=== PATIENT | female | born 1955 | race Caucasian/White ===

== ENCOUNTER 2025-07-01 18:11 | Inpatient (IN) | payer BC ==
[2025-06-24] MEDS: K and/or MAG REPLACEMENT MC SCH (08:00)
[2025-06-24] MEDS: methadone 5mg tablet PO SCH (13:00)
[2025-06-24] MEDS: dorzolamide 2% ophthalmic drops 10ml EACHEYE SCH (13:00)
[2025-06-24] MEDS: Ensure Enlive - 237ML PO SCH (16:08)
[~2025-07-01] VITALS: Ht 180.3 cm; Wt 52.0 kg
[2025-07-01] MEDS: LIDOcaine 1% W/epiNEPHrine 1:100,000 20ml vial SQ ONE (18:15)
--- NOTE | 2025-07-01 18:19 | ELECTROCARDIOGRAPH REPORT ---
[facility] Test Date: 2025-07-01 Test Time: 18:15:20 Pat Name: IRENE KAMARA Department: EMERGENCY ROOM Room: [place] [address] Gender: F Yarn Tester: : 1955 Requested By: PRASANNA BAUMANN Order Number: [id number] Reading MD: Dr. PAZ Hale Measurements Intervals [place] Rate: 63 P: 80 DE: 159 QRS: 95 QRSD: 130 T: 44 QT: 426 QTc: 437 Interpretive Statements Sinus rhythm Right bundle branch block Minimal ST elevation, inferior leads Electronically Signed On 07-11-2025 13:20:[address] PAZ Hale Please click the below link to view image of tracing.
[2025-07-01] MEDS ORDERED: iohexol 300mg/ml 100ml inj. ONE (18:22)
--- NOTE | 2025-07-01 18:27 | Physician Documentation ---
History of Present Illness General Chief Complaint: Hypotension Stated Complaint: FALL Time Seen by MD: 18:14 History of Present Illness Initial Comments This is a 70-year-old female who was brought in for evaluation of potential traumatic injuries sustained in the fall at 1:00 a.m. today. The etiology for fall appears to be mechanical according to the patient, she tripped. She injured her left hand. Somebody bandages the hand. The patient was placed back in the bed. It isn't not clear why they waited five extra hours to call the ambulance. Patient denies blood thinners, denies head strike, denies loss of consciousness. At the time of my examination she reports pain in her left hip, left ankle/foot. Worse with a any motion. Unable to ambulate. Did not attempt to treat her symptoms. Denies any chest pain, abdominal pain. The patient was brought in by BLS crew, however appear to be hypotensive EN route. Medication Reconciliation Allergies: Coded Allergies: Penicillins (Unverified Allergy, Unknown, 07/01/25) Review of Systems ROS 10 point review of systems was performed and unless noted above in HPI is negative for acute process/complaint. Physical Exam Physical Exam Vital Signs: Temperature: 97.9, Source: Temporal, Heart Rate: 63, Respiratory Rate: 20, Weight: 63.000 Oxygen Flow Rate: 0 Physical Exam GENERAL: Awake, alert, oriented, GCS 15, no apparent distress, non-toxic appearing, answers questions, follows commands appropriately. Examined immediately upon arrival in bed 6. HEENT: Atraumatic, normocephalic, edentulous, pupils equal, extraocular muscles intact, sclerae anicteric, mucus membranes moist, oropharynx is clear, no stridor. NECK: supple, full active range of motion, trachea midline, no thyromegaly, no l ymphadenopathy, no JVD. CARDIOVASCULAR: regular rate/rhythm, no murmurs/gallops/rubs, Pulses are 2+ in all extremities and symmetric. Capillary refill less than 2 seconds. PULMONARY: Nonlabored, good air movement ,no respiratory distress, speaking in full sentences, clear to auscultation bilaterally, no wheezing, no ronchi, no rales, no accessory muscle use. GASTROINTESTINAL: Soft, non-tender, non-distended, normal active bowel sounds, no organomegaly, no pulsatile masses, no CVA tenderness. NEUROLOGIC: Lucid with normal mental status. Normal facial symmetry. Moves all extremities symmetrically and with purpose. No truncal ataxia. Speech is fluid without evidence of dysarthria or aphasia, no focal deficits appreciated. MUSCULOSKELETAL: There is full range of motion of all extremities. There is no joint pain or joint swelling or joint erythema. There is no muscle pain or tenderness or swelling. EXTREMITIES: warm, well-perfused, no cyanosis, no clubbing, no edema, no acute deformities. Skin: warm, dry, no rashes or lesions, no jaundice, no petechiae orpurpura. No ecchymosis. PSYCHIATRIC: Normal affect, normal insight, normal concentration. Focused exam: [Left hip tenderness to palpation of the greater trochanter. Left ankle tender to palpation, limited range of motion. Swelling and medial and lateral malleolus. There is a 2 cm jagged laceration to the base of the palm as the left hand. No active bleeding. Neurologically intact distally.] Procedures Joint Reduction Joint Reduction : Reduction By: myself Conscious Sedation: Yes Reduction Attempts: 1 Pre-Procedure NV Exam: within normal limits Post-Procedure NV Exam: within normal limits Post Reduction Film: joint reduced, poor alignment Tolerated Procedure Well?: yes, no complications Moderate Sedation : Pulmonary Assessment: smoker, COPD/Emphysema Neurological Assessment: Unremarkable Cardiovascular Assessment: EKG reviewed, other (Hypotension) Other Systems: other (Methadone use) Hx of sedation difficulty?: No Medications: see reconiliation form ASA Class: III-severe disease Mallampati Score/Visibility of: Class 2-uvula Medication Used: Diprivan Staff Present: 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, 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, 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 Monitoring: desk monitor, Spo2, NIPB, patient on oxygen via N/C, suction ready, crash cart at bedside, BVM ready Tolerated Procedure Well?: yes, no complications Duration of Procedure (min): 22 Progress Results/Orders Results/Orders Orders - SHON BAUMANN DO Accucheck (07/01/25 18:15) Chest,Single View (07/01/25 18:15) Ct Cervical Spine (07/01/25 19:10) Ct Head (07/01/25 19:10) Ct Chest Abdomen Pelvis (07/01/25 19:10) Straight Cath For Urine Sample (07/01/25 18:15) Hip Unilateral 2-3 Views (07/01/25 ) Foot, Complete (3vw Min) (07/01/25 ) Ankle, Complete(3vw Min) (07/01/25 ) Cult Urine + [place] Ct (07/01/25 21:48) Ankle,Limited (Ap/Lat) (07/01/25 23:07) Completed Orders - SHON BAUMANN DO Electrocardiogram (07/01/25 18:15) Cbc/Diff (07/01/25 18:15) Pt Inr (07/01/25 18:15) PTT (07/01/25 18:15) Lipase (07/01/25 18:15) Ethanol (07/01/25 18:15) Drug Screen, Urine (07/01/25 18:15) CK (07/01/25 18:15) Type And Screen (07/01/25 18:15) Chest,Single View (07/01/25 18:15) Ct Cervical Spine (07/01/25 19:10) Ct Head (07/01/25 19:10) Ct Chest Abdomen Pelvis (07/01/25 19:10) Hs Troponin I W Calculations (07/01/25 18:15) Hs Troponin I W Calculations (07/01/25 20:15) Hip Unilateral 2-3 Views (07/01/25 ) Foot, Complete (3vw Min) (07/01/25 ) Ankle, Complete(3vw Min) (07/01/25 ) Lidocaine 1% W/Epi 1:100,000 (Xylocaine (07/01/25 18:15) Tetanus/Pertuss/Diph Acell/Pf (Boostrix (07/01/25 18:15) Iohexol 300mg/Ml 100ml Inj. (Omnipaque-3 (07/01/25 18:22) Ua W/Microscopic, Cult If Ind (07/01/25 21:03) CMP (07/01/25 21:40) Ondansetron Inj. (Zofran 4mg/2ml Vial) (07/01/25 22:30) Ondansetron Inj. (Zofran 4mg/2ml Vial) (07/01/25 22:30) Propofol Inj (Diprivan Inj) (07/01/25 22:30) Fentanyl/Pf (Fentanyl 0.05 Mg/Ml Syringe (07/01/25 22:30) Ankle,Limited (Ap/Lat) (07/01/25 23:07) Medications Received in ER Medications (Trade) Dose Ordered Sig/Xenia Route PRN Reason Start Time Stop Time Status Last Admin Dose Admin (Boostrix vaccine syringe) 0.5 ml ONCE ONCE IMVAC 07/01/25 18:15 07/01/25 18:18 DC 07/01/25 20:40 0.5 ML Vital Signs 07/01/25 07/01/25 07/01/25 07/01/25 18:13 18:35 18:41 18:44 Temp 97.9 97.9 97.9 Pulse 63 74 71 Resp 20 17 14 B/P (MAP) 81/36 111/93 (99) Pulse Ox 95 87 90 O2 Delivery Nasal Cannula O2 Flow Rate 0 2.0 07/01/25 07/01/25 07/01/25 07/01/25 19:00 19:15 19:32 19:45 Temp 97.9 97.9 97.9 97.9 Pulse 72 75 69 70 Resp 20 14 12 13 Pulse Ox 98 92 93 94 07/01/25 07/01/25 07/01/25 07/01/25 20:00 20:15 20:30 20:45 Temp 97.9 97.9 97.9 97.9 Pulse 75 70 72 67 Resp 14 14 12 14 Pulse Ox 93 88 91 91 07/01/25 07/01/25 07/01/25 07/01/25 21:45 22:26 22:52 22:56 Temp 97.9 97.9 Pulse 57 58 60 76 Resp 14 11 15 18 B/P (MAP) 126/63 (84) 128/63 (84) 112/57 Pulse Ox 98 100 98 96 O2 Delivery Nasal Cannula Nasal Cannula O2 Flow Rate 2.0 2.0 2.0 2.0 07/01/25 07/01/25 07/01/25 07/01/25 22:59 23:03 23:08 23:13 Pulse 66 72 63 73 Resp 5 15 13 B/P (MAP) 112/57 85/51 78/42 101/60 Pulse Ox 98 98 96 95 O2 Delivery Nasal Cannula Nasal Cannula Nasal Cannula Nasal Cannula O2 Flow Rate 2.0 2.0 2.0 2.0 07/01/25 07/01/25 23:15 23:30 Pulse 76 76 Resp 11 13 B/P (MAP) 142/124 (130) 127/62 (83) Pulse Ox 97 99 O2 Delivery Nasal Cannula Nasal Cannula O2 Flow Rate 2.0 2.0 Laboratory Tests Test 07/01/25 18:27 07/01/25 20:33 07/01/25 20:56 07/01/25 21:03 White Blood Count 14.3 H Red Blood Count 3.93 L Hemoglobin 11.7 L Hematocrit 35.9 Mean Corpuscular Volume 91.4 Mean Corpuscular Hemoglobin 29.8 Mean Corpuscular Hemoglobin Concent 32.6 L Red Cell Distribution Width 13.1 Platelet Count 238 Mean Platelet Volume 8.5 Neutrophils (%) (Auto) 77.1 H Lymphocytes (%) (Auto) 16.2 L Monocytes (%) (Auto) 5.3 Eosinophils (%) (Auto) 1.1 Basophils (%) (Auto) 0.3 Neutrophils # (Auto) 11.0 H Lymphocytes # (Auto) 2.3 Monocytes # (Auto) 0.8 Eosinophils # (Auto) 0.2 Basophils # (Auto) 0.0 CBC Comment Prothrombin Time 11.1 INR International Normalized Ratio 1.1 Activated Partial Thromboplast Time 27 Coagulation Comments Sodium Level 139 Potassium Level 3.6 Chloride Level 108 H Carbon Dioxide Level 20.9 L Anion Gap 10 Blood Urea Nitrogen 15 Total Bilirubin 0.3 Aspartate Amino Transf (AST/SGOT) 29 Alkaline Phosphatase 60 Total Creatine Kinase 65 Troponin I High Sensitivity 7 9 Total Protein 5.4 L Lipase 18 Chemistry Comments Ethyl Alcohol Level < 10 Troponin I High Sens Percent Delta 28 Troponin I Hi Sens Absolute Change 2 Glucometer 136 H Urine Specimen Description Straight cath Urine Color Yellow Urine Clarity Clear Urine pH 6.5 Urine Specific [place] 1.020 Urine Protein Negative Urine Glucose (UA) Negative Urine Ketones Negative Urine Occult Blood Trace-intact Urine Nitrite Positive H Urine Bilirubin Negative Urine Urobilinogen 1.0 Urine Leukocyte Esterase Negative Urine RBC 0-2 Urine WBC 20-30 H Urine Squamous Epithelial Cells Few Urine Bacteria 4+ Urine Mucus Few Urine Culture Indicated Indicated Volume Urine Centrifuged 10 ml Urine Comment Urine Opiates Screen Negative Urine Methadone Screen Positive Urine Fentanyl Screen Negative Urine Barbiturates Screen Negative Urine Phencyclidine Screen Negative Urine Amphetamines Screen Negative Urine Benzodiazepines Screen Negative Urine Cocaine Screen Negative Urine Cannabinoids Screen Negative Drug Screen Comment Test 07/01/25 22:04 Sodium Level 141 Potassium Level 3.8 Chloride Level 110 H Carbon Dioxide Level 26.6 Anion Gap 4 L Blood Urea Nitrogen 13 Creatinine 0.59 Estimated GFR/1.73 m2 > 90 BUN/Creatinine Ratio 22.0 H Glucose Level 119 H Calcium Level 7.8 L Total Bilirubin 0.3 Aspartate Amino Transf (AST/SGOT) 29 Alanine Aminotransferase (ALT/SGPT) 23 Alkaline Phosphatase 60 Total Protein 5.6 L Albumin 2.8 L Globulin 2.8 Albumin/Globulin Ratio 1.0 L Chemistry Comments Microbiology Date/Time Source Procedure Growth Status 07/01/25 21:48 Urine Straight Cath Urine Culture - Preliminary Culture received. Resulted EKG/XRAY/CT/US/VASC/MRI EKG : Additional Comment EKG was obtained and interpreted by myself shows sinus rhythm of 63, normal DE interval, wide QRS with a right bundle, no QT prolongation, normal axis, no STEMI. Medical Decision Making Additional information obtaine: other (EMS) Findings Facility Status: ED Holds, RME process The plan was discussed with the patient, who demonstrates clear understanding of the plan and is in agreement with the plan unless otherwise noted in the chart. All questions have been answered, all concerns were addressed unless otherwise documented. I was available throughout their ED stay for frequent reassessment and questions. Differential Diagnoses (considered and possible or likely): [Ground level fall, acute traumatic pain, closed head injury, concussion, subdural, subarachnoid, cervical spine fracture or subluxation, lumbar/thoracic spine fracture or subluxation, less likely intrathoracic or intra-abdominal injury. Left hip and ankle contusion versus fracture versus dislocation has been considerably.] ??Differential Diagnoses (considered and unlikely, not requiring evaluation currently): [No evidence of lateralizing sinuses suspect a stroke] MDM Data Please see HPI for the following: Independent Historians and external Records Review. Historian: [Patient] Independent Historians: ?[EMS, record review] Medication Management: [Reviewed medication list] Social History and determinants: [Reviewed] Please see the body of the note for the following: Any independent interpretations of ECG, imaging studies. All vitals signs/haemodynamics, ordered tests were independently reviewed and interpreted by myself. Nursing triage complaint and vitals reviewed, additional nursing notes were reviewed as available and I agree unless otherwise noted or documented in contradiction in the chart Vital Signs: Independently reviewed Labs: Independently interpreted Imaging: Independently interpreted Old Medical Records: Independently reviewed, see HPI for relevant summary and information Pulse Oximetry: [99%] interpreted as [normal on room air] by me [Subway Conductor: [Regular Rate, Regular rhythm, no ectopy, NSR] reviewed and interpreted by me] Additionally notably showing: [Hemodynamics reviewed. On arrival the patient is hypotensive but was fluid responsive. No evidence of respiratory distress and baseline 2 L. CBC shows mild leukocytosis. 77% neutrophils. Coagulation panel is unremarkable. Chemistry panel shows dehydration. Troponin is negative twice. Urine drug screen as expected positive for methadone. UA is concerning for UTI. Foot x-ray and ankle x-ray shows acute comminuted idax-dz-bhawlpnc displaced and impacted fracture distal tibia. Unfortunately with the fracture was too unstable that even with the attempted reduction not much progress was made. Hip x-ray shows an avulsion fracture of the left femur greater trochanter. Chest x-ray is unremarkable except for hyperinflated lungs as expected in his e mphysema patient. A CT head without contrast shows no acute intracranial abnormality. CT C-spine shows no fracture or subluxation of cervical spine. CT of the chest, abdomen and pelvis shows chronic T7 through L2 fractures, mild. Incidental finding of dilated bile duct. Patient has a no abdominal pain whatsoever.] Tests considered but not ordered include: [Not applicable] Social Determinants of Health Impact: Patient was evaluated in [facility], [facility] [place] access to healthcare due to below par ratio of patient to medical providers. [] Comorbid Conditions Impacting Present Evaluation and Care/Treatment: [Multiple, see list] Management Discussions with other Healthcare Providers: [Hospitalist regarding admission] Treatment and Disposition Medication Management (Given or considered): [Pain management]. See EMR for details Consideration for Hospitalization/Escalation/Deescalation of Care: Admission for inpatient management of her fractures as necessary. ?ED Course:?[No clinical deterioration no significant improvement. Patient is not able to ambulate.] ?Shared decision making:?[] Code status:?FULL Please see the full Electronic Medical Record for full details of nursing documentation, medications list, other records of complete past medical history and conditions, vital signs, laboratory studies, and any radiologic study inte rpretations by radiologists. Portions of this note were completed using Peerby dictation software and as a result there may exist minor errors in spelling. I have reviewed elements of past family and social history and agree as included in note. Differential Diagnosis See body of main note for differential diagnosis Departure Disposition: 09 ADMITTED INPATIENT Impression: Primary Impression: Fall Additional Impressions: Acute traumatic pain Closed avulsion fracture of greater trochanter of femur Closed fracture of distal end of fibula with tibia Laceration of palm Condition: Stable Referrals: NO PRIMARY CARE PROVIDER (PCP) Signature Scribe Signature: No scribe Attestation: The note accurately reflects work and decisions made by me.Shon Baumann, 07/01/25 18:27 SHON BAUMANN DO Jul 01, 2025 18:27
[2025-07-01 18:40] LABS: MEAN PLATELET VOLUME 8.5 FL (7.4-10.4); RED CELL DISTRIBUTION WIDTH 13.1 % (11.5-14.5)
[2025-07-01 18:56] LABS: APTT 27 SECONDS (22-32); INR 1.1 INR
[2025-07-01 19:01] LABS: ETHANOL < 10 MG/DL (<10)
--- NOTE | 2025-07-01 19:12 | RADIOLOGY REPORT ---
CHEST RADIOGRAPH INDICATION: fall, pain TECHNIQUE: Single frontal view of the chest was obtained COMPARISON: None FINDINGS: Lines and Tubes: None Lungs: No focal consolidation. Hyperinflation of the lungs with mild interstitial prominence which are be from Emphysematous changes. Pleura: No effusion. No pneumothorax. Cardiomediastinal contours: Unremarkable Bones: No acute osseous abnormality. IMPRESSION: Hyperinflation of the lungs with mild interstitial prominence which may be from Emphysematous changes. Otherwise, no evidence for acute cardiopulmonary disease.
--- NOTE | 2025-07-01 19:46 | RADIOLOGY REPORT ---
CT HEAD AND CT CERVICAL SPINE CLINICAL HISTORY: Fall, pain. TECHNIQUE: CT exam of the head carried out from skull base to vertex without intravenous contrast. CT exam of the cervical spine was performed without intravenous contrast. Multiplanar reconstructions were performed. These exams were performed according to our departmental dose optimization program. Up -to-date CT equipment and radiation dose reduction techniques are utilized as appropriate. CTDIvol: 32.1 mGy; DLP: 622.8 mGy-cm. COMPARISON: None available. FINDINGS: HEAD: Brain parenchyma: No acute hemorrhage, large vascular territory infarct, or mass effect. White matter is within normal limits for age. Mild cerebral volume loss, which is commensurate for age. Ventricles/Extra-axial spaces: No ventriculomegaly or extra-axial collection. Basal cisterns are patent. Extracranial structures: No acute or suspicious osseous abnormality. Incidentally noted hyperostosis frontalis interna. Normal soft tissues. Paranasal sinuses and mastoids demonstrate no significant abnormality. Orbits are unremarkable. Mild calcific atherosclerosis of the carotid siphons. CERVICAL SPINE: Commercial Counsel: Unremarkable. Alignment: Ciqk-al-bgkdayan dextroconvex curvature of the cervical spine with degenerate-related grade 1 anterolisthesis of C3 on C4 and mild retrolistheses of C4 on C5 and C5 on C6. No traumatic malalignment. Atlantoaxial joint: The dens is intact, the lateral masses of C1 are normally aligned relative to C2, and the atlantodental interval is normal. Mild degenerative changes of the middle atlantoaxial joint. Bones: No evidence of an acute fracture. Vertebral body heights are maintained. Posterior elements are intact. Osseous structures are demineralized. Discs: Multilevel jmme-dl-lbjjpvig disc space narrowing. Degenerative changes/Spinal canal/Neuroforamen: Overall moderate multilevel degenerative changes, characterized by varying degrees of anterior endplate osteophytes, posterior disc bulges/osteophyte complexes, bilateral facet arthropathy, and bilateral uncovertebral joint hypertrophy resulting in varying degrees of spinal canal stenoses (notably moderate at the C5-C6 level) and kajy-do-tykpmono bilateral neuroforaminal narrowing. Soft tissues: No prevertebral soft tissue swelling.Visualized neck soft tissues are normal. Other: Mild calcific atherosclerosis of the right carotid bifurcation. Mild scarring of the lung apices. Upper lobes of the lungs with mild centrilobular emphysema. IMPRESSION: 1. No acute intracranial abnormality. 2. No acute fracture or traumatic malalignment of the cervical spine.
[2025-07-01] MEDS: TETanus/Pertussis (Acell)/Diphther VAC/PF (Tdap-Adult) 0.5ml syringe IMVAC ONE (20:40)
--- NOTE | 2025-07-01 20:41 | RADIOLOGY REPORT ---
EXAM: DI ANKLE, COMPLETE(3VW MIN), DI FOOT, COMPLETE (3VW MIN) HISTORY: Fall, pain LEFT COMPARISON: None available. TECHNIQUE: DI ANKLE, COMPLETE(3VW MIN), DI FOOT, COMPLETE (3VW MIN) FINDINGS: Acute comminuted guxf-el-pgbhzziwnn displaced and impacted fracture of the distal tibia. Acute minimally displaced fracture of the distal fibula. Ankle mortise and syndesmosis spaces are intact. Talar dome is intact. Moderate degenerative changes of the first metatarsophalangeal joint. Degenerative changes of the interphalangeal joints of the toes, which is incompletely assessed on this exam. Metatarsus primus varus with hallux valgus and a large first metatarsophalangeal joint bunion. Second through fifth hammertoe deformities. Osseous structures are markedly demineralized. No significant soft tissue abnormality. IMPRESSION: 1. Acute comminuted jqiv-qh-zmrpjjvzfn displaced and impacted fracture of the distal tibia. 2. Acute minimally displaced fracture of the distal fibula.
--- NOTE | 2025-07-01 20:41 | RADIOLOGY REPORT ---
EXAM: DI ANKLE, COMPLETE(3VW MIN), DI FOOT, COMPLETE (3VW MIN) HISTORY: Fall, pain LEFT COMPARISON: None available. TECHNIQUE: DI ANKLE, COMPLETE(3VW MIN), DI FOOT, COMPLETE (3VW MIN) FINDINGS: Acute comminuted vjah-sk-ynnxzubrnc displaced and impacted fracture of the distal tibia. Acute minimally displaced fracture of the distal fibula. Ankle mortise and syndesmosis spaces are intact. Talar dome is intact. Moderate degenerative changes of the first metatarsophalangeal joint. Degenerative changes of the interphalangeal joints of the toes, which is incompletely assessed on this exam. Metatarsus primus varus with hallux valgus and a large first metatarsophalangeal joint bunion. Second through fifth hammertoe deformities. Osseous structures are markedly demineralized. No significant soft tissue abnormality. IMPRESSION: 1. Acute comminuted krti-gx-ueemifofun displaced and impacted fracture of the distal tibia. 2. Acute minimally displaced fracture of the distal fibula.
--- NOTE | 2025-07-01 20:44 | RADIOLOGY REPORT ---
DI HIP UNILATERAL 2-3 VIEWS INDICATION: Fall, pain LEFT. TECHNICAL DATA: Frontal and frog lateral views were obtained of the left hip. COMPARISON: None available. FINDINGS: Acute avulsion fracture of the left femur greater trochanter with a fracture fragment measuring approximately 18 mm that superomedially displaced by approximately 9 mm. Mild arthritis of the hips. No significant arthritis of the sacroiliac joints or pubic symphysis. Osseous structures are markedly demineralized. IMPRESSION: Acute avulsion fracture of the left femur greater trochanter with a fracture fragment measuring approximately 18 mm that superomedially displaced by approximately 9 mm.
--- NOTE | 2025-07-01 20:48 | RADIOLOGY REPORT ---
PROCEDURE: CT CT CHEST ABDOMEN PELVIS W/ IV CONTRAST 07/01/2025 07:09 PM INDICATION: fall, pain PT FELL PLEASE READ FOR FX OF T-L SPINE Comparison Study: None TECHNIQUE: Axial images were obtained through the chest, abdomen and pelvis and reformatted in coronal and sagittal planes. All CT scans at this medical facility are performed using dose modulation techniques as appropriate to a performed exam including the following: Automated exposure control was utilized; adjustment of the MA and/or KV according to patient size; and use of iterative reconstruction technique. CT Dose: CTDI volume is 7.29 mGy. Dose-length product is 533.09 mGy*cm FINDINGS: Chest: The thyroid gland is unremarkable. Heart size is within normal limits. No evidence of aortic aneurysm. Ffgl-mm-tjnwhgkl atherosclerotic calcification of the aorta Subcentimeter mediastinal lymph nodes which may be reactive. No pneumothorax, pleural effusion or focal airspace consolidation. Bilateral lower lobe ogwy-hgxickj-fgac-right upper lobe atelectasis. Mild body wall edema. Chronic Fracture deformity Of Right posterior 12 and 9. mild loss of vertebral body height of T7, T8 and T9 with mild loss of vertebral body height of T12. Abdomen and pelvis: 6 mm filling defect within the distal common bile duct with dilatation of the common bile duct up to 9 mm of the pancreatic head. Mild intrahepatic biliary ductal dilatation. Mild distention of the gallbladder which is otherwise unremarkable. Liver is unremarkable. The spleen is not definitely visualized. Adrenal glands unremarkable. Kidneys, ureters and urinary bladder are unremarkable. Uterus and adnexa unremarkable. Large hiatal hernia. Gastric wall thickening which may be due to inadequate distention. No significant distention of the small bowel loops. Appendix is not definitely visualized. Without visualization of the Appendix, can not exclude acute appendicitis. Large amount of fecal material within the rectum and cecum with rectal distention up to 8.7 x 9.2 cm. Small to moderate amount of fecal material within the remainder of the colon. Mild wall thickening of the ascending colon. No evidence of Intraperitoneal free air. Diffuse mesenteric edema. No evidence of aortic aneurysm or dissection. Wncy-kl-cnwfmwwh atherosclerotic calcification of the aorta and bilateral iliacs. No significant lymphadenopathy. Uwlw-bx-zqwmtans body wall edema. There is about 40% loss of vertebral body height of L 2 of unknown chronicity with mild loss of superior vertebral body height of L4 which appears chronic. Diffuse demineralization. Moderate to severe degenerative changes of the lumbar spine. Sclerotic focus over the left acetabulum which may represent a small bone island. IMPRESSION: mild loss of vertebral body height of T7, T8 , T9, T12, L2 and L4 of unknown chronicity. MRI would be helpful to determine chronicity. Dilatation of the Common bile duct with questionable 6 mm filling defect within the distal common bile duct. MRCP is recommended for further evaluation . Large hiatal hernia. Mild wall thickening of the ascending colon Wedge-shaped due to inadequate distention with mild colitis not excluded. Large amount of fecal material within the rectum and cecum with rectal distention up to 8.7 x 9.2 cm. Diffuse mesenteric edema. Pico-tk-ojgattxj body wall edema.
[2025-07-01 21:15] LABS: LEUKOCYTE ESTERASE ,URINE NEGATIVE (Neg); NITRITES, URINE POSITIVE (Neg); OCCULT BLOOD,URINE TRACE-INTACT (Neg)
[2025-07-01 21:21] LABS: UA COLLECTION TYPE STRAIGHT CATH
[2025-07-01 21:35] LABS: URINE AMPHETAMINE SCREEN NEGATIVE (Neg); URINE BARBITUATE SCREEN NEGATIVE (Neg); URINE BENZODIAZEPINES SCREEN NEGATIVE (Neg); URINE CANNABINOID SCREEN NEGATIVE (Neg); URINE COCAINE SCREEN NEGATIVE (Neg); URINE METHADONE SCREEN POSITIVE (Neg); URINE OPIATE SCREEN NEGATIVE (Neg); URINE PHENCYCLIDINE SCREEN NEGATIVE (Neg)
[2025-07-01 21:47] LABS: MUCUS STRANDS FEW /LPF (Neg); SQUAMOUS EPITHELIAL CELL,UR FEW /LPF (FEW)
[2025-07-01] MEDS: fentaNYL/PF 50MCG/1 ML 2ML syringe IV ONE (22:30)
[2025-07-01] MEDS: ondansetron/PF 4mg/2ml inj IV ONE ×2 (22:30)
[2025-07-01] MEDS: propofol 10mg/ml 20ml vial IV ONE (22:30)
[2025-07-01 22:49] LABS: CREATININE 0.59 MG/DL (0.40-0.90); TOTAL CARBON DIOXIDE 26.6 MMOL/L (24-32); eCRCL 73 ML/MIN; eGFR > 90 ML/MIN
--- NOTE | 2025-07-01 23:39 | RADIOLOGY REPORT ---
CLINICAL INDICATION: post reduction TECHNIQUE: DI ANKLE,LIMITED (AP/LAT) COMPARISON: DI ANKLE, COMPLETE(3VW MIN) on DOS: 07/01/25 FINDINGS/IMPRESSION: : Cast material partially obscures detail. No significant change in appearance of moderately displaced distal tibial and minimally displaced distal fibular fractures. Soft tissues are unremarkable.
[2025-07-02] MEDS: LidoCAINE 2% Topical Jelly 11mL syringe (UROJET) TOP ONE (00:40)
[2025-07-02] MEDS ORDERED: magnesium Cl slow-release 64mg tablet PO PRN (00:40)
[2025-07-02] MEDS: normal saline 1000ml 1,000 ML IV SCH (00:40)
[2025-07-02] MEDS ORDERED: magnesium sulf-water 2g/50mL 50 ML IV PRN (00:40)
[2025-07-02] MEDS ORDERED: magnesium sulf-water 4G/100mL 100 ML IV PRN (00:40)
[2025-07-02] MEDS ORDERED: ondansetron/PF 4mg/2ml inj IV PRN (00:40)
[2025-07-02] MEDS ORDERED: magnesium hydroxide 30ml (MOM) UD suspension PO PRN (00:40)
[2025-07-02] MEDS ORDERED: potassium Cl 40MEQ/1/2NS 520ml 520 ML IV PRN (00:40)
[2025-07-02] MEDS ORDERED: potassium Cl 20 mEq SR tablet PO PRN ×2 (00:40)
--- NOTE | 2025-07-02 00:52 | HISTORY AND PHYSICAL-Residence ---
History & Physical Providers to CC Resident Creating Document: PAM GONGORA RES ~ History of Present Illness Reason for Admit\Complaint: Lt. Hip Frx History of Present Illness The patient is a 70-year-old female brought to the ER after a mechanical fall at home yesterday around 1:00 p.m.. She reports tripping while walking inside her house; although she normally uses a cane, she was not using it at the time of the fall. Her brother, who lives with her, assisted afterward. She injured her left hand and has been unable to bear weight on her left leg since the fall. She did not strike her head, denies loss of consciousness, and denies injury to the left arm. She reports localized pain only in intent denies headache, dizziness, chest pain, shortness of breath, focal weakness, or sensory changes. She has a > 40 years smoking history (approximately half pack per day). She is on chronic methadone therapy for pain but denies recreational drug use. She also reports chronic back pain. She denies fever, nausea, vomiting, diarrhea, or any urinary symptoms. Allergies: Coded Allergies: Penicillins (Unverified Allergy, Unknown, 07/01/25) Past Medical History Past Medical History Chronic back pain, on methadone Past Surgical History Surgical History Comment No surgeries in the past Past Social History Social History Comment Her brother lives with her. She uses cane for ambulation. She smokes half a pack of cigarettes per day for the past 40 years. Denies consuming alcohol or using recreational drug. ROS All Other Systems: Reviewed and Negative ROS As stated above in the HPI, otherwise all systems are reviewed and negative. Exam Vitals: Vital Signs Date Time Temp Pulse Resp B/P (MAP) Pulse Ox O2 Delivery O2 Flow Rate FiO2 07/02/25 00:15 97.9 57 12 100/57 (71) 97 2.0 07/01/25 23:30 Nasal Cannula General: Elderly emaciated female. Awake and Alert, no acute distress. HEENT: Conjunctiva pink, Sclera clear, Mucus Membranes moist. Neck: Supple without masses and tenderness. Resp: Unlabored. Lungs clear to auscultation bilaterally. Heart: Regular Rate and rhythm, normal S1 and S2 without murmur, rub or gallop. Abdomen: Soft and non tender no organomegaly Extremities: Left leg stabilized. Slightly internally rotated. Painful with movement. Sensations intact Skin: Warm and Dry. Diagnostic Data Last Recorded Lab Results: 07/01/25 1827 07/01/254 Diagnostic Data: Laboratory Tests Test 07/01/25 18:27 Prothrombin Time 11.1 SECONDS (9.0-12.0) INR International Normalized Ratio 1.1 INR Activated Partial Thromboplast Time 27 SECONDS (22-32) Coagulation Comments Advance Care Planning Advanced Care plannin - 30 Minutes Additional Plan Left hip fracture: Acute displaced fracture of the left femur greater trochanter Acute minimally displaced fracture of the distal fibula Acute moderately displaced fracture of the distal tibia Plan: Orthopedic surgery consult for evaluation and management, pending No weight-bearing on the left lower extremity, pending ortho recommendation. Keep NPO Pain control; continue home methadone; do not Hold Dilaudid 0.5 mg for acute pain, titrated to effect PT/OT consult requested DVT prophylaxis: Lovenox Fall precautions Urinary tract infection UA suggestive of UTI. CBC shows leukocytosis Documented penicillin allergy, upon further questioning, patient stated she feel nauseated. No anaphylaxis. Received a dose of ceftriaxone in ER, continue Chronic pain on methadone Continue verified home methadone dose Avoid mixed agonist/antagonist opioids Monitor for QT prolongation and over-sedation Tobacco use disorder Forty year smoking history Smoking cessation counseling provided Offered nicotine replacement therapy, patient refused Disposition planning Anticipate need for SNF depending on mobility and orthopedic plan Case management and social work consult Pam Gongora Internal Medicine Resident, PGY-3 (Cardiology) Date of Service: Jul 02, 2025 Billing Provider: RENUKA WONG MD Addendum Attestation I agree with the residents assessment and plan as below: 70 year old female admitted after a fall with hip fracture Plan: NPO ortho consult dilaudid for pain control CCT 40 min using HIPPA compliant A/V technology PAM GONGORA, RES Jul 02, 2025 00:52 RENUKA WONG MD Jul 02, 2025 18:16
[2025-07-02] MEDS ORDERED: METH-806 PO (01:48)
[2025-07-02] MEDS: CefTRIAXone/D5W-Rocephin 1gm 50 ML IV ONE (02:13)
[2025-07-02 08:00] VITALS: RESP 17; O2SAT 100
[2025-07-02] MEDS: enoxaparin 40mg/0.4ml syringe SUBCUT SCH (08:00)
[2025-07-02] MEDS: docusate sod 100mg capsule PO SCH (09:07)
[2025-07-02] MEDS: CefTRIAXone/D5W-Rocephin 1gm 50 ML IV SCH (09:22)
[2025-07-02 10:22] VITALS: BP 116/64; PULSE 64; RESP 14; TEMP 97.7; O2SAT 100
[2025-07-02] MEDS: HYDROmorphone inj. 0.5 MG/0.5 ML DISP.SYRIN IV PRN (10:47)
--- NOTE | 2025-07-02 14:27 | CONSULTATION REPORT ---
History of Present Illness Providers to CC ~ Reason for Admit\Admit Dx: l hip l ankle Refering MD: Dr Araya History of Present Illness The patient is a 70-year-old female brought to the ER after a mechanical fall at home yesterday around 1:00 p.m.. She reports tripping while walking inside her house; although she normally uses a cane, she was not using it at the time of the fall. She has been unable to bear weight on her left leg since the fall. She did not strike her head, denies loss of consciousness, and denies injury to the left arm. She reports localized pain only in intent denies headache, dizziness, chest pain, shortness of breath, focal weakness, or sensory changes. She has a > 40 years smoking history (approximately half pack per day). She is on chronic methadone therapy for pain but denies recreational drug use. She also reports chronic back pain. She denies fever, nausea, vomiting, diarrhea, or any urinary symptoms. XRAYS showed an ankle fracture and hip trocnater avulsion Allergies: Coded Allergies: Penicillins (Unverified Allergy, Unknown, 07/01/25) Home Medications Home Medications Active Reported Methadone Hcl 5 Mg Tablet 1 Tab PO QID Past Family History Family History: Patient reports no known family medical history. Physical Exam Last Vital Signs Recorded: Temperature: 97.7, Source: Oral, Heart Rate: 64, Respiratory Rate: 14, BP: 116/64, Pulse Oximetry: 100, Weight: 52.000 General Appearance: alert, no apparent distress, thin Extremities left ankle in a splint, toes perfusing well. ,left hip tender over the greater trochanter, hip mobility good Results Results/Orders Results/Orders hip has a small grater trochanter minimal avulsion, ankle shows imacted and displaced distal tibia /ankle fracture Diagram Lab Result Diagram: 07/01/25 1827 07/01/25 2206 Assessment/Plan Problems/Diagnosis: (1) Closed avulsion fracture of greater trochanter of femur Assessment & Plan: does not need surgery, just symptomatic care, full weight bearing (2) Closed fracture of distal end of fibula with tibia Additional Plan significantly displpaced in bone with poor density, will order CT scan, I have asked Dr Aly to consult for the ankle Problem Qualifiers (1) Closed avulsion fracture of greater trochanter of femur: Qualified Codes: S72.112A - Displaced fracture of greater trochanter of left femur, initial encounter for closed fracture (2) Closed fracture of distal end of fibula with tibia: Qualified Codes: S82.302A - Unspecified fracture of lower end of left tibia, initial encounter for closed fracture; S82.832A - Other fracture of upper and lower end of left fibula, initial encounter for closed fracture MAMIE DAVIS Jr., MD Jul 02, 2025 14:27
--- NOTE | 2025-07-02 19:20 | RADIOLOGY REPORT ---
PROCEDURE: CT CT LOWER EXTREMITY 07/02/2025 03:30 PM INDICATION: left ankle fracture Comparison Study: DI ANKLE,LIMITED (AP/LAT) on DOS: 07/01/25, DI ANKLE, COMPLETE(3VW MIN) on DOS: 07/01/25, DI FOOT, COMPLETE (3VW MIN) on DOS: 07/01/25 TECHNIQUE: Multiple contiguous axial CT images were obtained of the left ankle and reformatted in coronal and sagittal planes. All CT scans at this medical facility are performed using dose modulation techniques as appropriate to a performed exam including the following: Automated exposure control was utilized; adjustment of the MA and/or KV according to patient size; and use of iterative reconstruction technique. CT Dose: CTDI volume is 14.36+ 0.21 mGy. Dose-length product is 612 x 4 mGy*cm FINDINGS: Bones: Bony demineralization. There is a Mildly displaced fracture of the distal fibula. Displaced fracture of the posterior malleolus. Displaced and comminuted fracture of the distal tibia with fracture lines extending into the tibial plafond and tibiotalar joint. Fracture lines extend into the medial malleolus. Soft tissues: Soft tissue swelling about the left ankle. Muscle bundles about the distal left lower extremity and into the left foot intact. IMPRESSION: 1. Comminuted trimalleolar fracture. Comminuted fracture lines extend into the tibial plafond and tibiotalar joint. 2. Soft tissue swelling about the left ankle. 3. Bony demineralization.
[2025-07-02 19:26] VITALS: BP 117/57; PULSE 66; RESP 16; TEMP 97.8; O2SAT 94
[2025-07-02 20:00] VITALS: RESP 16; O2SAT 94
[2025-07-02 22:00] VITALS: BP 106/55; PULSE 80; RESP 16; TEMP 98.2; O2SAT 95
[2025-07-03 05:25] LABS: MEAN PLATELET VOLUME 8.1 FL (7.4-10.4); RED CELL DISTRIBUTION WIDTH 13.4 % (11.5-14.5)
[2025-07-03 05:32] LABS: CREATININE 0.61 MG/DL (0.40-0.90); TOTAL CARBON DIOXIDE 28.7 MMOL/L (24-32); eCRCL 70 ML/MIN; eGFR > 90 ML/MIN
[2025-07-03 06:00] VITALS: BP 101/59; PULSE 77; RESP 17; TEMP 98.2; O2SAT 94
[2025-07-03 08:00] VITALS: RESP 17; O2SAT 94
[2025-07-03] MEDS: nicotine 21mg patch - 24 hr TD SCH (08:01)
[2025-07-03 10:00] VITALS: BP 103/46; PULSE 64; RESP 17; TEMP 98.2; O2SAT 94
[2025-07-03] MEDS ORDERED: LATA2.5D7 EACHEYE (10:38)
[2025-07-03] MEDS ORDERED: DORZ10DR10 EACHEYE (10:38)
--- NOTE | 2025-07-03 17:24 | PROGRESS NOTE- Residence ---
Progress Note - Resident Providers to CC Resident Creating Document: AB BAHENA RES ~ Antibiotic Timeout Antibiotic Ordered?: Yes Subjective Patient has been seen and examined at the bedside. No acute events overnight. Pain is well controlled. Awaiting Dr. Aly recommendations on ankle and foot surgery. Objective Vital Signs Date Time Temp Pulse Resp B/P (MAP) Pulse Ox O2 Delivery O2 Flow Rate FiO2 07/03/25 10:00 98.2 64 17 103/46 (65) 94 Nasal Cannula 2.0 07/03/25 08:00 100 Result Diagram: 07/03/2545707/03/25457 General: Elderly emaciated female. Awake and Alert, no acute distress. HEENT: Conjunctiva pink, Sclera clear, Mucus Membranes moist. Neck: Supple without masses and tenderness. Resp: Unlabored. Lungs clear to auscultation bilaterally. Heart: Regular Rate and rhythm, normal S1 and S2 without murmur, rub or gallop. Abdomen: Soft and non tender no organomegaly Extremities: Left leg stabilized. Slightly internally rotated. Painful with movement. Sensations intact Skin: Warm and Dry. Coagulation Studies Laboratory Tests Test 07/01/25 18:27 Prothrombin Time 11.1 SECONDS (9.0-12.0) INR International Normalized Ratio 1.1 INR Activated Partial Thromboplast Time 27 SECONDS (22-32) Coagulation Comments Assessment Assessment The patient is a 70-year-old female brought to the ER after a mechanical fall at home yesterday around 1:00 p.m.. She reports tripping while walking inside her house; although she normally uses a cane, she was not using it at the time of the fall. Patient was being admitted for management greater trochanter fracture of left hip and distal tibia and fibula fracture of the left side Plan Plan Acute displaced greater trochanteric fracture of the left femur Acute minimally displaced fracture of the distal fibula Acute moderately displaced fracture of the distal tibia Orthopedic surgery consult for evaluation and management, pending Dr. Lopez recommendations Per Dr. Donnelly no intervention on the greater trochanter fracture. Can continue full weight-bearing. Pain control; continue home methadone; do not Hold Dilaudid 0.5 mg for acute pain, titrated to effect PT/OT consult requested DVT prophylaxis: Lovenox Fall precautions Urinary tract infection UA suggestive of UTI. Leukocytosis resolved. Urine cultures are growing Gram- negative rods Documented penicillin allergy, upon further questioning, patient stated she feel nauseated. No anaphylaxis. Received a dose of ceftriaxone in ER, continue Chronic pain on methadone Continue verified home methadone dose Avoid mixed agonist/antagonist opioids No evidence of QT prolongation on EKG Tobacco use disorder Forty year smoking history Smoking cessation counseling provided Offered nicotine replacement therapy, patient refused Disposition planning Anticipate need for SNF depending on mobility and orthopedic plan Case management and social work consult Code Status: Full code DVT Prophylaxis: Lovenox Analgesia/Sedation: Methadone, Dilaudid Lines/Tubes: PIV Gi Prophylaxis: None Nutrition: NPO after midnight PT: Yes Prognosis: Guarded Disposition: Continue care in surgical floor. Pending orthopedic recommendations Ab Gamboa MD Internal Medicine Resident PGY-2 Ab Gamboa Internal Medicine Resident, PGY-2 Date of Service: Jul 03, 2025 Billing Provider: HEIDI GALEANO MD Common Visit Codes: [id number] INP/OBS CARE(HIGH) AB BAHENA, RES Jul 03, 2025 17:24 HEIDI GALEANO MD Jul 05, 2025 07:45
[2025-07-03 18:00] VITALS: BP 100/51; PULSE 73; RESP 14; TEMP 97.6; O2SAT 98
[2025-07-03 20:00] VITALS: RESP 14; O2SAT 98
[2025-07-03 22:00] VITALS: BP 96/46; PULSE 80; RESP 18; TEMP 98.6; O2SAT 96
[2025-07-04 04:20] LABS: MEAN PLATELET VOLUME 8.0 FL (7.4-10.4); RED CELL DISTRIBUTION WIDTH 13.2 % (11.5-14.5)
[2025-07-04 04:24] LABS: CREATININE 0.42 MG/DL (0.40-0.90); TOTAL CARBON DIOXIDE 27.7 MMOL/L (24-32); eCRCL 102 ML/MIN; eGFR > 90 ML/MIN
[2025-07-04 06:00] VITALS: BP 97/52; PULSE 64; RESP 16; TEMP 97.8; O2SAT 97
[2025-07-04 08:00] VITALS: RESP 15; O2SAT 98
[2025-07-04] MEDS: latanoprost 0.005% 2.5ml ophthalmic drops EACHEYE SCH (09:08)
[2025-07-04] MEDS: timolol 0.5% ophthalmic solution 5ml bottle EACHEYE SCH (09:08)
[2025-07-04 10:00] VITALS: BP 101/55; PULSE 92; RESP 16; TEMP 98.6; O2SAT 98
--- NOTE | 2025-07-04 16:07 | PROGRESS NOTE- Residence ---
Progress Note - Resident Providers to CC Resident Creating Document: AB BAHENA RES ~ Antibiotic Timeout Antibiotic Ordered?: Yes Subjective Patient has been seen and examined at the bedside. No acute events overnight. Pain is well controlled. Patient has good appetite. Discontinued IV fluids today. Pending Dr. Aly recommendations Objective Vital Signs Date Time Temp Pulse Resp B/P (MAP) Pulse Ox O2 Delivery O2 Flow Rate FiO2 07/04/25 06:00 97.8 64 16 97/52 (67) 97 Nasal Cannula 2.0 07/03/25 08:00 100 Result Diagram: 07/04/25 0401 07/04/25 0401 General: Elderly emaciated female. Awake and Alert, no acute distress. HEENT: Conjunctiva pink, Sclera clear, Mucus Membranes moist. Neck: Supple without masses and tenderness. Resp: Unlabored. Lungs clear to auscultation bilaterally. Heart: Regular Rate and rhythm, normal S1 and S2 without murmur, rub or gallop. Abdomen: Soft and non tender no organomegaly Extremities: Left leg stabilized. Slightly internally rotated. Painful with movement. Sensations intact Skin: Warm and Dry. Coagulation Studies Laboratory Tests Test 07/01/25 18:27 Prothrombin Time 11.1 SECONDS (9.0-12.0) INR International Normalized Ratio 1.1 INR Activated Partial Thromboplast Time 27 SECONDS (22-32) Coagulation Comments Assessment Assessment The patient is a 70-year-old female brought to the ER after a mechanical fall at home yesterday around 1:00 p.m.. She reports tripping while walking inside her house; although she normally uses a cane, she was not using it at the time of the fall. Patient was being admitted for management greater trochanter fracture of left hip and distal tibia and fibula fracture of the left side Plan Plan Is a strong Acute traumatic displaced greater trochanteric closed fracture of the left femur Acute minimally displaced fracture of the distal fibula Acute moderately displaced fracture of the distal tibia Orthopedic surgery consult for evaluation and management, pending Dr. Lopez recommendations Per Dr. Donnelly no intervention on the greater trochanter fracture. Can continue full weight-bearing. Pain control; continue home methadone; do not Hold Dilaudid 0.5 mg for acute pain, titrated to effect PT/OT consult requested DVT prophylaxis: Lovenox Fall precautions Urinary tract infection UA suggestive of UTI. Leukocytosis resolved. Urine cultures are growing pansensitive Klebsiella. Continue Rocephin IV daily Documented penicillin allergy, upon further questioning, patient stated she feel nauseated. No anaphylaxis. Received a dose of ceftriaxone in ER, continue IV ceftriaxone day three Chronic pain on methadone Continue verified home methadone dose Avoid mixed agonist/antagonist opioids No evidence of QT prolongation on EKG Tobacco use disorder Forty year smoking history Smoking cessation counseling provided Offered nicotine replacement therapy, patient refused Disposition planning Anticipate need for SNF depending on mobility and orthopedic plan Case management and social work consult Code Status: Full code DVT Prophylaxis: Lovenox Analgesia/Sedation: Methadone, Dilaudid Lines/Tubes: PIV Gi Prophylaxis: None Nutrition: NPO after midnight PT: Yes Prognosis: Guarded Disposition: Continue care in surgical floor. Pending Podiatry recommendations Ab Gamboa MD Internal Medicine Resident PGY-2 Date of Service: Jul 04, 2025 Billing Provider: HEIDI GALEANO MD Common Visit Codes: [id number] INP/OBS CARE(HIGH) AB BAHENA, RES Jul 04, 2025 16:07 HEIDI GALEANO MD Jul 05, 2025 07:46
[2025-07-04 18:00] VITALS: BP 110/47; PULSE 82; RESP 16; TEMP 96.7; O2SAT 100
--- NOTE | 2025-07-04 18:18 | CONSULTATION REPORT ---
History of Present Illness Providers to CC ~ Reason for Admit\Admit Dx: l hip l ankle Refering MD: Dr Araya History of Present Illness The patient is a 70-year-old female brought to the ER after tripping in her home. She states she was unable to bear weight to the left lower exdtremity and denies nausea, vomiting, fever, chills, chest pain, shortness of breath. Allergies: Coded Allergies: Penicillins (Unverified Allergy, Unknown, 07/01/25) Home Medications Home Medications Active Reported Dorzolamide-Timolol Eye Drops (Dorzolamide HCl/Timolol Maleat) 22.3 Mg-6.8 Mg/Ml Drops 1 Drop EACHEYE TID Latanoprost 0.005 % Drops 1 Drop EACHEYE DAILY Methadone Hcl 5 Mg Tablet 1 Tab PO QID Past Family History Family History: Patient reports no known family medical history. Physical Exam Last Vital Signs Recorded: Temperature: 98.6, Source: Oral, Heart Rate: 92, Respiratory Rate: 16, BP: 101/55, Pulse Oximetry: 98, Weight: 52.000 General Appearance: alert, no apparent distress, thin Lymphatic Left lower extremity light touch sensation intact about digits 1-5 Cap refill <3 seconds calf is soft, nontender to compression Splint is c/d/i Results Diagram Lab Result Diagram: 07/04/25 0401 07/04/25 0401 Assessment/Plan Problems/Diagnosis: (1) Closed avulsion fracture of greater trochanter of femur (2) Closed fracture of distal end of fibula with tibia Additional Plan No plans for surgery. Patient will remain NWB to the LLE. Recommend PT evaluation Can leave posterior splint intact until follow up with Dr. Aly in our office. Problem Qualifiers (1) Closed avulsion fracture of greater trochanter of femur: Qualified Codes: S72.112A - Displaced fracture of greater trochanter of left femur, initial encounter for closed fracture (2) Closed fracture of distal end of fibula with tibia: Qualified Codes: S82.302A - Unspecified fracture of lower end of left tibia, initial encounter for closed fracture; S82.832A - Other fracture of upper and lower end of left fibula, initial encounter for closed fracture JAYE SAMPSON DPM Jul 04, 2025 18:18
[2025-07-04 22:00] VITALS: BP 127/62; PULSE 70; RESP 16; TEMP 98.9; O2SAT 99
[2025-07-05 05:14] LABS: MEAN PLATELET VOLUME 8.1 FL (7.4-10.4); RED CELL DISTRIBUTION WIDTH 13.2 % (11.5-14.5)
[2025-07-05 05:19] LABS: CREATININE 0.55 MG/DL (0.40-0.90); TOTAL CARBON DIOXIDE 31.3 MMOL/L (24-32); eCRCL 78 ML/MIN; eGFR > 90 ML/MIN
[2025-07-05 06:00] VITALS: BP 121/53; PULSE 73; RESP 14; TEMP 98.3; O2SAT 98
[2025-07-05] MEDS ORDERED: bisacodyl 10mg suppository rectal RC PRN (12:25)
--- NOTE | 2025-07-05 12:52 | PROGRESS NOTE- Residence ---
Progress Note - Resident Providers to CC Resident Creating Document: AB BAHENA RES ~ Antibiotic Timeout Antibiotic Ordered?: Yes Subjective Patient has been seen and examined at the bedside. No recommendations for surgery inpatient. Patient needs to follow up with Podiatry outpatient. Patient needs to continue nonweightbearing on left ankle and continue the ankle brace till she sees Podiatry outpatient. Patient has not had a bowel movement since three days. Ordered laxatives and suppositories today. Patient has a Kirkpatrick catheter in place for prolonged immobilization and urine cultures are growing pansensitive Klebsiella. Objective Vital Signs Date Time Temp Pulse Resp B/P (MAP) Pulse Ox O2 Delivery O2 Flow Rate FiO2 07/05/25 06:00 98.3 73 14 121/53 (75) 98 Nasal Cannula 2.0 07/03/25 08:00 100 Result Diagram: 07/05/2544207/05/25442 General: Elderly emaciated female. Awake and Alert, no acute distress. HEENT: Conjunctiva pink, Sclera clear, Mucus Membranes moist. Neck: Supple without masses and tenderness. Resp: Unlabored. Lungs clear to auscultation bilaterally. Heart: Regular Rate and rhythm, normal S1 and S2 without murmur, rub or gallop. Abdomen: Soft and non tender no organomegaly Extremities: Left leg stabilized. Slightly internally rotated. Painful with movement. Sensations intact Skin: Warm and Dry. Coagulation Studies Laboratory Tests Test 07/01/25 18:27 Prothrombin Time 11.1 SECONDS (9.0-12.0) INR International Normalized Ratio 1.1 INR Activated Partial Thromboplast Time 27 SECONDS (22-32) Coagulation Comments Assessment Assessment The patient is a 70-year-old female brought to the ER after a mechanical fall at home yesterday around 1:00 p.m.. She reports tripping while walking inside her house; although she normally uses a cane, she was not using it at the time of the fall. Patient was being admitted for management greater trochanter fracture of left hip and distal tibia and fibula fracture of the left side Plan Plan Acute traumatic displaced greater trochanteric closed fracture of the left femur Acute minimally displaced fracture of the distal fibula Acute moderately displaced fracture of the distal tibia Orthopedic surgery consult for evaluation and management, no surgical intervention per Dr. Aly recommendations. Continue nonweightbearing and ankle brace.. Per Dr. Donnelly no intervention on the greater trochanter fracture. Pain control; continue home methadone; do not Hold Dilaudid 0.5 mg for acute pain, titrated to effect PT/OT consult requested, patient likely needs rehab DVT prophylaxis: Lovenox Fall precautions Urinary tract infection UA suggestive of UTI. Leukocytosis resolved. Urine cultures are growing pansensitive Klebsiella. Continue Rocephin IV daily Documented penicillin allergy, upon further questioning, patient stated she feel nauseated. No anaphylaxis. Received a dose of ceftriaxone in ER, continue IV ceftriaxone day 4 Chronic pain on methadone Continue verified home methadone dose Avoid mixed agonist/antagonist opioids No evidence of QT prolongation on EKG Tobacco use disorder Forty year smoking history Smoking cessation counseling provided Offered nicotine replacement therapy, patient refused Disposition planning Anticipate need for SNF depending on mobility and orthopedic plan Case management and social work consult Severe protein calorie malnutrition Hypoalbuminemia Code Status: Full code DVT Prophylaxis: Lovenox Analgesia/Sedation: Methadone, Dilaudid Lines/Tubes: PIV Gi Prophylaxis: None Nutrition: Regular diet PT: Yes Prognosis: Guarded Disposition: Continue care in surgical floor. Awaiting placement to rehab. Ab Gamboa MD Internal Medicine Resident PGY-2 Date of Service: Jul 05, 2025 Billing Provider: HEIDI GALEANO MD Common Visit Codes: [id number] INP/OBS CARE(HIGH) AB BAHENA, RES Jul 05, 2025 12:52 HEIDI GALEANO MD Jul 06, 2025 07:15
[2025-07-05] MEDS: sodium polystyrene sulfonate 15gm/60ml oral suspension PO ONE (13:53)
[2025-07-05 18:00] VITALS: BP 100/47; PULSE 80; RESP 16; TEMP 98.6; O2SAT 99
[2025-07-05 20:00] VITALS: RESP 16; O2SAT 99
[2025-07-05] MEDS: polyethylene glycol 3350 17gm powd pack PO SCH (20:56)
[2025-07-05 21:05] VITALS: RESP 16; O2SAT 99
[2025-07-05 22:00] VITALS: BP 92/54; PULSE 83; RESP 18; TEMP 98.6; O2SAT 97
[2025-07-06 04:43] LABS: MEAN PLATELET VOLUME 8.2 FL (7.4-10.4); RED CELL DISTRIBUTION WIDTH 13.5 % (11.5-14.5)
[2025-07-06 04:49] LABS: CREATININE 0.63 MG/DL (0.40-0.90); TOTAL CARBON DIOXIDE 37.4 MMOL/L (24-32); eCRCL 68 ML/MIN; eGFR > 90 ML/MIN
[2025-07-06 06:00] VITALS: BP 98/47; PULSE 45; PULSE 60; RESP 16; TEMP 98.2; O2SAT 98
[2025-07-06 10:00] VITALS: BP 94/58; PULSE 72; RESP 16; TEMP 98.9; O2SAT 96
--- NOTE | 2025-07-06 16:06 | PROGRESS NOTE- Residence ---
Progress Note - Resident Providers to CC Resident Creating Document: AB BAHENA RES ~ Antibiotic Timeout Antibiotic Ordered?: Yes Subjective Patient has been seen and examined at the bedside. No acute events overnight. Pain about 8/10, however patient does not want to take more pain medication other than methadone. Patient's constipation resolved, had a bowel movement this morning. Referral sent by case management, awaiting placement. Anticipated discharge tomorrow Objective Vital Signs Date Time Temp Pulse Resp B/P (MAP) Pulse Ox O2 Delivery O2 Flow Rate FiO2 07/06/25 10:00 98.9 72 16 94/58 (70) 96 Nasal Cannula 2.0 07/03/25 08:00 100 Result Diagram: 07/06/2541407/06/25414 General: Elderly emaciated female. Awake and Alert, no acute distress. HEENT: Conjunctiva pink, Sclera clear, Mucus Membranes moist. Neck: Supple without masses and tenderness. Resp: Unlabored. Lungs clear to auscultation bilaterally. Heart: Regular Rate and rhythm, normal S1 and S2 without murmur, rub or gallop. Abdomen: Soft and non tender no organomegaly Extremities: Left leg stabilized. Slightly internally rotated. Painful with movement. Sensations intact Skin: Warm and Dry. Coagulation Studies Laboratory Tests Test 07/01/25 18:27 Prothrombin Time 11.1 SECONDS (9.0-12.0) INR International Normalized Ratio 1.1 INR Activated Partial Thromboplast Time 27 SECONDS (22-32) Coagulation Comments Assessment Assessment The patient is a 70-year-old female brought to the ER after a mechanical fall at home yesterday around 1:00 p.m.. She reports tripping while walking inside her house; although she normally uses a cane, she was not using it at the time of the fall. Patient was being admitted for management greater trochanter fracture of left hip and distal tibia and fibula fracture of the left side Plan Plan Acute traumatic displaced greater trochanteric closed osteoporotic fracture of the left femur Acute minimally displaced fracture of the distal fibula Acute moderately displaced fracture of the distal tibia Orthopedic surgery consult for evaluation and management, no surgical intervention per Dr. Aly recommendations. Continue nonweightbearing and ankle brace.. Per Dr. Donnelly no intervention on the greater trochanter fracture. Pain control; continue home methadone; do not Hold Dilaudid 0.5 mg for acute pain, titrated to effect PT/OT consult requested, patient likely needs rehab DVT prophylaxis: Lovenox Fall precautions Urinary tract infection UA suggestive of UTI. Leukocytosis resolved. Urine cultures are growing pansensitive Klebsiella. Continue Rocephin IV daily Documented penicillin allergy, upon further questioning, patient stated she feel nauseated. No anaphylaxis. Received a dose of ceftriaxone in ER, continue IV ceftriaxone day 4 Chronic pain on methadone Continue verified home methadone dose Avoid mixed agonist/antagonist opioids No evidence of QT prolongation on EKG Tobacco use disorder Forty year smoking history Smoking cessation counseling provided Offered nicotine replacement therapy, patient refused Disposition planning Anticipate need for SNF depending on mobility and orthopedic plan Case management and social work consult Severe protein calorie malnutrition Hypoalbuminemia Code Status: Full code DVT Prophylaxis: Lovenox Analgesia/Sedation: Methadone, Dilaudid Lines/Tubes: PIV Gi Prophylaxis: None Nutrition: Regular diet PT: Yes Prognosis: Guarded Disposition: Continue care in surgical floor. Awaiting placement to rehab. Ab Gamboa MD Internal Medicine Resident PGY-2 Date of Service: Jul 06, 2025 Billing Provider: HEIDI GALEANO MD Common Visit Codes: [id number] INP/OBS CARE(HIGH) AB BAHENA, RES Jul 06, 2025 16:06 HEIDI GALEANO MD Jul 07, 2025 09:13
[2025-07-06] MEDS: multivitamins, therapeutics tablet PO SCH (16:46)
[2025-07-06 18:00] VITALS: BP 98/47; PULSE 96; RESP 16; TEMP 98.1; O2SAT 98
[2025-07-06 20:00] VITALS: RESP 20; O2SAT 92
[2025-07-06 22:00] VITALS: BP 103/45; PULSE 83; RESP 20; TEMP 98.5; O2SAT 98
[2025-07-07 05:46] LABS: MEAN PLATELET VOLUME 8.1 FL (7.4-10.4); RED CELL DISTRIBUTION WIDTH 13.3 % (11.5-14.5)
[2025-07-07 06:00] VITALS: BP 90/51; PULSE 69; RESP 19; TEMP 97.3; O2SAT 96
[2025-07-07 06:03] LABS: CREATININE 0.60 MG/DL (0.40-0.90); TOTAL CARBON DIOXIDE 33.9 MMOL/L (24-32); eCRCL 72 ML/MIN; eGFR > 90 ML/MIN
[2025-07-07 09:48] LABS: PRO BRAIN NATRIURETIC PEPTIDE 601 PG/ML (0-125)
[2025-07-07 10:00] VITALS: BP 11/64; PULSE 75; RESP 16; TEMP 97.3; O2SAT 96
--- NOTE | 2025-07-07 16:52 | PROGRESS NOTE- Residence ---
Progress Note - Resident Providers to CC Resident Creating Document: BELEN NUÑEZ RES ~ Antibiotic Timeout Antibiotic Ordered?: Yes Subjective Patient has been seen and examined at the bedside. No acute events overnight. Patient's constipation resolved, had three bowel movement this morning. Patient eating well Referral sent by case management, awaiting placement. Objective Vital Signs Date Time Temp Pulse Resp B/P (MAP) Pulse Ox O2 Delivery O2 Flow Rate FiO2 07/06/25 22:00 98.5 83 20 103/45 (64) 98 Nasal Cannula 2.0 07/03/25 08:00 100 Result Diagram: 07/07/2543007/07/25 043 General: Elderly emaciated female. Awake and Alert, no acute distress. HEENT: Conjunctiva pink, Sclera clear, Mucus Membranes moist. Neck: Supple without masses and tenderness. Resp: Unlabored. Lungs clear to auscultation bilaterally. Heart: Regular Rate and rhythm, normal S1 and S2 without murmur, rub or gallop. Abdomen: Soft and non tender no organomegaly Extremities: Left leg stabilized. Slightly internally rotated. Painful with movement. Sensations intact Skin: Warm and Dry. Coagulation Studies Laboratory Tests Test 07/01/25 18:27 Prothrombin Time 11.1 SECONDS (9.0-12.0) INR International Normalized Ratio 1.1 INR Activated Partial Thromboplast Time 27 SECONDS (22-32) Coagulation Comments Assessment Assessment The patient is a 70-year-old female brought to the ER after a mechanical fall at home yesterday around 1:00 p.m.. She reports tripping while walking inside her house; although she normally uses a cane, she was not using it at the time of the fall. Patient was being admitted for management greater trochanter fracture of left hip and distal tibia and fibula fracture of the left side Plan Plan Acute traumatic displaced greater trochanteric closed osteoporotic fracture of the left femur Acute minimally displaced fracture of the distal fibula Acute moderately displaced fracture of the distal tibia Orthopedic surgery consult for evaluation and management, no surgical intervention per Dr. Aly recommendations. Continue nonweightbearing and ankle brace.. Per Dr. Donnelly no intervention on the greater trochanter fracture. Pain control; continue home methadone; do not Hold Dilaudid 0.5 mg for acute pain, titrated to effect PT/OT consult requested, patient likely needs rehab DVT prophylaxis: Lovenox Fall precautions Urinary tract infection UA suggestive of UTI. Leukocytosis resolved. Urine cultures are growing pansensitive Klebsiella. Received a dose of ceftriaxone in ER, continue IV ceftriaxone day 5 Chronic pain on methadone Continue verified home methadone dose Avoid mixed agonist/antagonist opioids No evidence of QT prolongation on EKG Tobacco use disorder Forty year smoking history Smoking cessation counseling provided Offered nicotine replacement therapy, patient refused Disposition planning Anticipate need for SNF depending on mobility and orthopedic plan Case management and social work consult Severe protein calorie malnutrition Hypoalbuminemia Code Status: Full code DVT Prophylaxis: Lovenox Analgesia/Sedation: Methadone, Dilaudid Lines/Tubes: PIV Gi Prophylaxis: None Nutrition: Regular diet PT: Yes Prognosis: Guarded Disposition: Continue care in surgical floor. Awaiting placement to rehab. Belen Nuñez PGY-1 Date of Service: Jul 07, 2025 Billing Provider: HEIDI GALEANO MD Common Visit Codes: [id number] INP/OBS CARE(HIGH) Secondary Visit Codes: [id number] CHNG SMOKING >10MIN BELEN NUÑEZ, RES Jul 07, 2025 16:52 HEIDI GALEANO MD Jul 08, 2025 07:22
[2025-07-07 18:00] VITALS: BP 101/57; PULSE 77; RESP 16; TEMP 97; O2SAT 98
[2025-07-07 20:00] VITALS: RESP 18; O2SAT 96
[2025-07-07 22:00] VITALS: BP 136/35; PULSE 94; RESP 16; TEMP 98.6; O2SAT 95
[2025-07-08 06:00] VITALS: BP 113/50; PULSE 97; RESP 16; TEMP 97.9; O2SAT 96
--- NOTE | 2025-07-08 12:33 | PROGRESS NOTE- Residence ---
Progress Note - Resident Providers to CC Resident Creating Document: AB BAHENA RES ~ Antibiotic Timeout Antibiotic Ordered?: Yes Subjective Patient has been seen and examined at the bedside. Patient had a bowel movement this morning. Pain is well controlled. Left ankle fracture is covered with dressing. Kirkpatrick was removed today urinary wick was placed. Waiting authorization to [facility] for discharge Objective Vital Signs Date Time Temp Pulse Resp B/P (MAP) Pulse Ox O2 Delivery O2 Flow Rate FiO2 07/08/25 07:35 Room Air 07/08/25 06:00 97.9 97 16 113/50 (71) 96 07/07/25 22:00 2.0 Result Diagram: 07/07/2543007/07/25430 General: Elderly emaciated female with poor hygiene. Awake and Alert, no acute distress. HEENT: Conjunctiva pink, Sclera clear, Mucus Membranes moist. Neck: Supple without masses and tenderness. Resp: Unlabored. Lungs clear to auscultation bilaterally. Heart: Regular Rate and rhythm, normal S1 and S2 without murmur, rub or gallop. Abdomen: Soft and non tender no organomegaly Extremities: Left leg stabilized. Slightly internally rotated covered with dressing intact. Sensations intact Skin: Onychomycosis on foot nails. Warm and Dry. Coagulation Studies Laboratory Tests Test 07/01/25 18:27 Prothrombin Time 11.1 SECONDS (9.0-12.0) INR International Normalized Ratio 1.1 INR Activated Partial Thromboplast Time 27 SECONDS (22-32) Coagulation Comments Assessment Assessment The patient is a 70-year-old female brought to the ER after a mechanical fall at home yesterday around 1:00 p.m.. She reports tripping while walking inside her house; although she normally uses a cane, she was not using it at the time of the fall. Patient was being admitted for management greater trochanter fracture of left hip and distal tibia and fibula fracture of the left side Plan Plan Acute traumatic displaced greater trochanteric closed osteoporotic fracture of the left femur Acute minimally displaced fracture of the distal fibula Acute moderately displaced fracture of the distal tibia Orthopedic surgery consult for evaluation and management, no surgical intervention per Dr. Aly recommendations. Continue nonweightbearing and ankle brace.. Per Dr. Donnelly no intervention on the greater trochanter fracture. Pain control; continue home methadone; do not Hold Dilaudid 0.5 mg for acute pain, titrated to effect PT/OT consult requested, patient likely needs rehab DVT prophylaxis: Lovenox Fall precautions Urinary tract infection UA suggestive of UTI. Leukocytosis resolved. Urine cultures are growing pansensitive Klebsiella. Received a dose of ceftriaxone in ER, continue IV ceftriaxone day [address] urinary wick Chronic pain on methadone Continue verified home methadone dose Avoid mixed agonist/antagonist opioids No evidence of QT prolongation on EKG Tobacco use disorder Forty year smoking history Smoking cessation counseling provided Offered nicotine replacement therapy, patient refused Disposition planning Anticipate need for SNF depending on mobility and orthopedic plan Case management and social work consult Severe protein calorie malnutrition Hypoalbuminemia Code Status: Full code DVT Prophylaxis: Lovenox Analgesia/Sedation: Methadone, Dilaudid Lines/Tubes: PIV Gi Prophylaxis: None Nutrition: Regular diet PT: Yes Prognosis: Guarded Disposition: Continue care in surgical floor. Awaiting placement to [facility] rehab, pending authorization. Ab Gamboa MD PGY two internal medicine resident Date of Service: Jul 08, 2025 Billing Provider: FINN WINTER MD Common Visit Codes: [id number] INP/OBS CARE(HIGH) AB BAHENA, RES Jul 08, 2025 12:33 FINN WINTER MD Jul 08, 2025 18:54
[2025-07-08 18:00] VITALS: BP 120/61; PULSE 85; RESP 20; TEMP 97.5; O2SAT 89
[2025-07-08 20:00] VITALS: RESP 20; O2SAT 92
[2025-07-08 22:00] VITALS: BP 106/52; PULSE 70; RESP 13; TEMP 99.3; O2SAT 92
[2025-07-09 07:06] VITALS: BP 101/61; PULSE 69; RESP 14; TEMP 97.9; O2SAT 97
[2025-07-09 08:00] VITALS: RESP 16; O2SAT 96
[2025-07-09 10:00] VITALS: BP 99/51; PULSE 77; RESP 16; TEMP 98.4; O2SAT 96
[2025-07-09] MEDS ORDERED: polyethylene glycol 3350 pkt PO (11:17)
--- NOTE | 2025-07-09 16:11 | PROGRESS NOTE- Residence ---
Progress Note - Resident Providers to CC Resident Creating Document: AB BAHENA RES ~ Antibiotic Timeout Antibiotic Ordered?: No Subjective Patient has been seen and examined at the bedside. Patient is comfortably sitting in the chair. No complaints or pain. Waiting authorization to [facility] for discharge. Case management is actively working on authorization. Objective Vital Signs Date Time Temp Pulse Resp B/P (MAP) Pulse Ox O2 Delivery O2 Flow Rate FiO2 07/09/25 10:00 98.4 77 16 99/51 (67) 96 Nasal Cannula 2.0 Result Diagram: 07/07/2543007/07/25430 General: Elderly emaciated female with poor hygiene. Awake and Alert, no acute distress. HEENT: Conjunctiva pink, Sclera clear, Mucus Membranes moist. Neck: Supple without masses and tenderness. Resp: Unlabored. Lungs clear to auscultation bilaterally. Heart: Regular Rate and rhythm, normal S1 and S2 without murmur, rub or gallop. Abdomen: Soft and non tender no organomegaly Extremities: Left leg stabilized. Slightly internally rotated covered with dressing intact. Sensations intact Skin: Onychomycosis on foot nails. Warm and Dry. Coagulation Studies Laboratory Tests Test 07/01/25 18:27 Prothrombin Time 11.1 SECONDS (9.0-12.0) INR International Normalized Ratio 1.1 INR Activated Partial Thromboplast Time 27 SECONDS (22-32) Coagulation Comments Assessment Assessment The patient is a 70-year-old female brought to the ER after a mechanical fall at home yesterday around 1:00 p.m.. She reports tripping while walking inside her house; although she normally uses a cane, she was not using it at the time of the fall. Patient was being admitted for management greater trochanter fracture of left hip and distal tibia and fibula fracture of the left side Plan Plan Acute traumatic displaced greater trochanteric closed osteoporotic fracture of the left femur Acute minimally displaced fracture of the distal fibula Acute moderately displaced fracture of the distal tibia Orthopedic surgery consult for evaluation and management, no surgical intervention per Dr. Aly recommendations. Continue nonweightbearing and ankle brace.. Per Dr. Donnelly no intervention on the greater trochanter fracture. Pain control; continue home methadone; do not Hold Dilaudid 0.5 mg for acute pain, titrated to effect PT/OT consult requested, patient likely needs rehab DVT prophylaxis: Lovenox Fall precautions Urinary tract infection UA suggestive of UTI. Leukocytosis resolved. Urine cultures are growing pansensitive Klebsiella. Finished course of ceftriaxone for a week. Urinary wick in place Chronic pain on methadone Continue verified home methadone dose Avoid mixed agonist/antagonist opioids No evidence of QT prolongation on EKG Tobacco use disorder Forty year smoking history Smoking cessation counseling provided Offered nicotine replacement therapy, patient refused Disposition planning Anticipate need for SNF depending on mobility and orthopedic plan Case management and social work consult Severe protein calorie malnutrition Hypoalbuminemia Code Status: Full code DVT Prophylaxis: Lovenox Analgesia/Sedation: Methadone, Dilaudid Lines/Tubes: PIV Gi Prophylaxis: None Nutrition: Regular diet PT: Yes Prognosis: Guarded Disposition: Continue care in surgical floor. Awaiting placement to [facility] rehab, pending authorization. Ab Gamboa MD PGY two internal medicine resident Date of Service: Jul 09, 2025 Billing Provider: FINN WINTER MD Common Visit Codes: [id number] INP/OBS CARE(HIGH) AB BAHENA, RES Jul 09, 2025 16:11 FINN WINTER MD Jul 09, 2025 19:27
[2025-07-09 18:00] VITALS: BP 112/41; PULSE 76; RESP 17; TEMP 98.6; O2SAT 94
[2025-07-09 20:00] VITALS: RESP 20; O2SAT 92
[2025-07-09 22:00] VITALS: BP 101/48; PULSE 87; RESP 18; TEMP 98.4; O2SAT 92
[2025-07-10 06:00] VITALS: BP 91/45; PULSE 68; RESP 20; TEMP 97.7; O2SAT 95
[2025-07-10 08:00] VITALS: RESP 20; O2SAT 95
[2025-07-10 08:17] LABS: MEAN PLATELET VOLUME 7.2 FL (7.4-10.4); RED CELL DISTRIBUTION WIDTH 14.0 % (11.5-14.5)
[2025-07-10 08:30] LABS: CREATININE 0.54 MG/DL (0.40-0.90); TOTAL CARBON DIOXIDE 27.6 MMOL/L (24-32); eCRCL 80 ML/MIN; eGFR > 90 ML/MIN
[2025-07-10 10:00] VITALS: BP 108/47; PULSE 74; RESP 16; TEMP 98.1; O2SAT 94
--- NOTE | 2025-07-10 10:55 | DISCHARGE SUMMARY-Residence ---
Discharge Summary Providers to Resident Creating Document: AB BAHENA, RES ~ Discharge Summary Admission Diagnosis: ANKLE AND HIP FRACTURE Hospital Course DATE OF ADMISSION: DATE OF DISCHARGE: Discharge Diagnosis\Comment: Acute displaced closed osteoporotic greater trochanteric fracture of the left femur. Acute minimally displaced distal fibula fracture. Acute moderately displaced distal tibia fracture. Urinary tract infection treated. Chronic pain on methadone. Tobacco use disorder. Severe protein-calorie malnutrition. Operations\Procedures: None Consultants: Dr. Donnelly, Dr. Aly Complications: None Condition on DC: Stable New Medications: Enoxaparin Sodium (Enoxaparin Sodium) 40 Mg/0.4 Ml Syringe 40 MG SUBCUT DAILY for 30 Days, #1 VIAL Multivitamin with Folic Acid (Thera Tablet) 400 Mcg Tablet 1 EACH PO DAILY for 30 Days, #30 TAB Nicotine 21 MG Patch* (Habitrol 21 MG Patch*) 1 Each Patch.td24 1 PATCH TD DAILY for 30 Days, #30 PATCH [polyethylene glycol 3350 pkt] () 17 GM POWD.PACK 17 GM PO HS for 30 Days, #30 Continued Medications: Dorzolamide HCl/Timolol Maleat (Dorzolamide-Timolol Eye Drops) 22.3 Mg-6.8 Mg/Ml Drops 1 DROP EACHEYE TID Latanoprost (Latanoprost) 0.005 % Drops 1 DROP EACHEYE DAILY Methadone Hcl (Methadone Hcl) 5 Mg Tablet 1 TAB PO QID for pain Discharge Summary: History of Present Illness: The patient is a 70-year-old female who presented to the emergency department after a mechanical fall at home yesterday around 1:00 p.m. She reports tripping while walking inside her house; although she normally uses a cane, she was not using it at the time of the fall. She sustained injuries to her left hip and left lower extremity. Imaging confirmed a displaced greater trochanteric fracture of the left femur and fractures of the distal tibia and fibula. Hospital Course: The patient was admitted for management of acute traumatic displaced greater trochanteric fracture of the left femur, acute minimally displaced distal fibula fracture, and moderately displaced distal tibia fracture. Orthopedic surgery and podiatric surgeon was consulted; per Dr. Aly and Dr. Donnelly, no surgical intervention was recommended. The patient was managed conservatively with non- weightbearing status and ankle brace. Pain was controlled with continuation of home methadone and supplemental IV Dilaudid titrated to effect. PT/OT evaluations were completed, and the patient will require rehabilitation post- discharge. The patient was also treated for urinary tract infection; urine culture grew pansensitive Klebsiella. She completed a 7-day course of IV ceftriaxone. Leukocytosis resolved. Urinary wick remains in place. Chronic pain on methadone: Continued verified home dose; avoided mixed agonist/antagonist opioids; EKG showed no QT prolongation. Tobacco use disorder: 40-year smoking history; smoking cessation counseling provided; nicotine replacement offered but declined. Severe protein-calorie malnutrition: Hypoalbuminemia noted; nutrition consult recommended. Physical Examination at Discharge: General: Alert, oriented, in mild distress due to pain. Vitals: Stable at discharge. HEENT: Normocephalic, atraumatic. Cardiac: Regular rate and rhythm, no murmurs. Respiratory: Clear breath sounds bilaterally. Abdomen: Soft, non-tender, normoactive bowel sounds. Musculoskeletal: Left lower extremity with swelling and tenderness over hip and ankle; non-weightbearing; ankle brace in place. Skin: Warm, dry, no rashes. Neurological: No focal deficits. Imaging: Lower extremity CT: 1. Comminuted trimalleolar fracture. Comminuted fracture lines extend into the tibial plafond and tibiotalar joint. 2. Soft tissue swelling about the left ankle. 3. Bony demineralization. Head CT: 1. No acute intracranial abnormality. 2. No acute fracture or traumatic malalignment of the cervical spine. Chest/abdomen/pelvis CT: mild loss of vertebral body height of T7, T8 , T9, T12, L2 and L4 of unknown chronicity. MRI would be helpful to determine chronicity. Dilatation of the Common bile duct with questionable 6 mm filling defect within the distal common bile duct. MRCP is recommended for further evaluation . Large hiatal hernia. Mild wall thickening of the ascending colon Wedge-shaped due to inadequate distention with mild colitis not excluded. Large amount of fecal material within the rectum and cecum with rectal distention up to 8.7 x 9.2 cm. Diffuse mesenteric edema. [id number] body wall edema. Cervical spine CT: 1. No acute intracranial abnormality. 2. No acute fracture or traumatic malalignment of the cervical spine. Chest x-ray: Hyperinflation of the lungs with mild interstitial prominence which may be from Emphysematous changes. Otherwise, no evidence for acute cardiopulmonary disease. Ankle x-ray: 1. Acute comminuted [id number]-ln-dwpjmhafgi displaced and impacted fracture of the distal tibia. 2. Acute minimally displaced fracture of the distal fibula. Discharge Recommendations: Orthopedic follow-up: Continue non-weightbearing; maintain ankle brace; outpatient follow-up with orthopedics in 12 weeks. Rehabilitation: Transfer to SNF for PT/OT and mobility training. Pain management: Continue home methadone Nutrition: High-protein diet Smoking cessation: Reinforce counseling; consider outpatient support. Monitor for complications: Worsening pain, fever, or signs of infection. *Problems/Diagnosis: (1) Closed avulsion fracture of greater trochanter of femur Status: Acute (2) Closed fracture of distal end of fibula with tibia Status: Acute Total Time Spent on D/C: > 30 Minutes Date of Service: Jul 10, 2025 Billing Provider: FINN WINTER MD Common Visit Codes: 31701-CLO/OBS DISCH DAY >30min Problem Qualifiers (1) Closed avulsion fracture of greater trochanter of femur: Encounter type: initial encounter Laterality: left Qualified Codes: S72.112A - Displaced fracture of greater trochanter of left femur, initial encounter for closed fracture (2) Closed fracture of distal end of fibula with tibia: Encounter type: initial encounter Laterality: left Qualified Codes: S82.302A - Unspecified fracture of lower end of left tibia, initial encounter for closed fracture; S82.832A - Other fracture of upper and lower end of left fibula, initial encounter for closed fracture AB BAHENA, RES Jul 10, 2025 10:55 FINN WINTER MD Jul 11, 2025 13:33
--- NOTE | 2025-07-10 15:49 | PROGRESS NOTE- Residence ---
Progress Note - Resident Providers to CC Resident Creating Document: AB BAHENA, BABATUNDE ~ Antibiotic Timeout Antibiotic Ordered?: No Subjective Patient has been seen and examined at the bedside. Nursing staff noticed bedbugs in patient's purse. Patient was placed in contact isolation and discharge was canceled due to unavailability of isolation precautions at the rehab. We received authorization from patient insurance [employer] for rehab RPA. Objective Vital Signs Date Time Temp Pulse Resp B/P (MAP) Pulse Ox O2 Delivery O2 Flow Rate FiO2 07/10/25 10:00 98.1 74 16 108/47 (67) 94 Nasal Cannula 2.0 Result Diagram: 07/10/25 0758 07/10/25 0758 General: Elderly emaciated female with poor hygiene. Awake and Alert, no acute distress. HEENT: Conjunctiva pink, Sclera clear, Mucus Membranes moist. Neck: Supple without masses and tenderness. Resp: Unlabored. Lungs clear to auscultation bilaterally. Heart: Regular Rate and rhythm, normal S1 and S2 without murmur, rub or gallop. Abdomen: Soft and non tender no organomegaly Extremities: Left leg stabilized. Slightly internally rotated covered with dressing intact. Sensations intact Skin: Onychomycosis on foot nails. Warm and Dry. Coagulation Studies Laboratory Tests Test 07/01/25 18:27 Prothrombin Time 11.1 SECONDS (9.0-12.0) INR International Normalized Ratio 1.1 INR Activated Partial Thromboplast Time 27 SECONDS (22-32) Coagulation Comments Assessment Assessment The patient is a 70-year-old female brought to the ER after a mechanical fall at home yesterday around 1:00 p.m.. She reports tripping while walking inside her house; although she normally uses a cane, she was not using it at the time of the fall. Patient was being admitted for management greater trochanter fracture of left hip and distal tibia and fibula fracture of the left side Plan Plan Acute traumatic displaced greater trochanteric closed osteoporotic fracture of the left femur Acute minimally displaced fracture of the distal fibula Acute moderately displaced fracture of the distal tibia Orthopedic surgery consult for evaluation and management, no surgical intervention per Dr. Aly recommendations. Continue nonweightbearing and ankle brace.. Per Dr. Donnelly no intervention on the greater trochanter fracture. Pain control; continue home methadone; do not Hold Dilaudid 0.5 mg for acute pain, titrated to effect PT/OT consult requested, patient likely needs rehab DVT prophylaxis: Lovenox Fall precautions Urinary tract infection UA suggestive of UTI. Leukocytosis resolved. Urine cultures are growing pansensitive Klebsiella. Finished course of ceftriaxone for a week. Urinary wick in place Chronic pain on methadone Continue verified home methadone dose Avoid mixed agonist/antagonist opioids No evidence of QT prolongation on EKG Tobacco use disorder Forty year smoking history Smoking cessation counseling provided Offered nicotine replacement therapy, patient refused Disposition planning Anticipate need for SNF depending on mobility and orthopedic plan Case management and social work consult Severe protein calorie malnutrition Hypoalbuminemia Bedbugs Patient placed in contact isolation Code Status: Full code DVT Prophylaxis: Lovenox Analgesia/Sedation: Methadone, Dilaudid Lines/Tubes: PIV Gi Prophylaxis: None Nutrition: Regular diet PT: Yes Prognosis: Guarded Disposition: Continue care in surgical floor. Awaiting placement to [facility] rehab, after determining isolation status Ab Gamboa MD PGY two internal medicine resident Date of Service: Jul 10, 2025 Billing Provider: FINN WINTER MD Common Visit Codes: [id number] INP/OBS CARE(HIGH) BA BAHENA, RES Jul 10, 2025 15:49 FINN WINTER MD Jul 10, 2025 19:50
== END 2025-07-10 15:30 | DRG 542 ==
LOC: ER 18:13 → ED HOLD 07-02 00:18 → EDBEDREQ 07-02 03:34 → SUR 3N 07-02 07:35
PROVIDERS: ADMIT Internal Medicine; ATTEND Internal Medicine
PROC: BW251ZZ Computerized Tomography (CT Scan) of Chest, Abdomen and Pelvis using Low Osmolar Contrast (ICD-10-PCS; principal; 2025-07-01)
DX: M80.852A Other osteoporosis with current pathological fracture, left femur, initial encounter for fracture (principal); E43 Unspecified severe protein-calorie malnutrition; E88.09 Other disorders of plasma-protein metabolism, not elsewhere classified; F17.210 Nicotine dependence, cigarettes, uncomplicated; D72.829 Elevated white blood cell count, unspecified; S61.412A Laceration without foreign body of left hand, initial encounter; N39.0 Urinary tract infection, site not specified; Z68.1 Body mass index [BMI] 19.9 or less, adult; M80.062A Age-related osteoporosis with current pathological fracture, left lower leg, initial encounter for fracture; G89.11 Acute pain due to trauma; G89.29 Other chronic pain; W18.39XA Other fall on same level, initial encounter; Y93.89 Activity, other specified; Y99.8 Other external cause status; Y92.89 Other specified places as the place of occurrence of the external cause; Z88.0 Allergy status to penicillin
CPT/HCPCS: 36415; 70450; 71045; 71260; 72125; 73502; 73600; 73610; 73630; 73700; 74177; 80048; 80053; 80305; 80320; 81001; 82550; 82948; 83690; 83880; 84484; 85025; 85610; 85730; 86885; 86900; 86901; 87077; 87081; 87088; 87186; 90471; 90715; 93005; 97110; 97116; 97162; 97530; 99285; A4314; A4615; A4620; A5200; A6213; A6258; A6402; A6449; G0378; J0696; J1171; J1650; J2405; J7030; Q9967